=== PATIENT | male | born 1945 | race Caucasian/White ===

== ENCOUNTER 2017-10-13 11:48 | Emergency (ER) | payer OTHER ==
[~2017-10-13] VITALS: Ht 172.7 cm; Wt 95.4 kg
[~2017-10-13 11:48] MED LIST: METOPROLOL SUCC25 MG PO; OMEPRAZOLE20 M2 PO; OXYCODONE HCL15 MG PO; PERCOCET 7.51 TABLET PO; PLAVIX75 MG PO; SIMVASTATIN40 MG PO
[2017-10-13 13:43] VITALS: BP 114/73
== END 2017-10-13 13:44 | disposition home or self-care (01) ==
LOC: EME 11:48
PROC: 0HQLXZZ Repair Left Lower Leg Skin, External Approach (ICD-10-PCS; principal; 2017-10-13)
DX: S81.812A Laceration without foreign body, left lower leg, initial encounter (principal); W01.110A Fall on same level from slipping, tripping and stumbling with subsequent striking against sharp glass, initial encounter; W25.XXXA Contact with sharp glass, initial encounter; I10 Essential (primary) hypertension; E78.5 Hyperlipidemia, unspecified; K21.9 Gastro-esophageal reflux disease without esophagitis; I25.2 Old myocardial infarction; G89.29 Other chronic pain; M54.9 Dorsalgia, unspecified; F17.200 Nicotine dependence, unspecified, uncomplicated; Z79.891 Long term (current) use of opiate analgesic; Z79.02 Long term (current) use of antithrombotics/antiplatelets; Z95.1 Presence of aortocoronary bypass graft; Z95.5 Presence of coronary angioplasty implant and graft; Z98.890 Other specified postprocedural states; Z90.49 Acquired absence of other specified parts of digestive tract
CPT/HCPCS: 73590; 99281; 99284

== ENCOUNTER 2017-12-29 18:24 | Emergency (ER) | payer OTHER | END 2017-12-29 19:14 | disposition left against medical advice (07) | LOC: EME 18:24 | DX: R42 Dizziness and giddiness (principal); Z53.21 Procedure and treatment not carried out due to patient leaving prior to being seen by health care provider ==